=== PATIENT | female | born 1980 | race Caucasian/White ===

== ENCOUNTER → 2018-05-04 | Outpatient (CLI) | payer BC, OTHER ==
[~2018-05-04] MED LIST: DOCU100; IBUP800 PO; MULVITMINE PO; OXYACE5T PO
== END | disposition home or self-care (01) ==
LOC: LAB SHORT 09:19 → PLD 09:19
DX: D48.5 Neoplasm of uncertain behavior of skin (principal)
CPT/HCPCS: 88305

== ENCOUNTER 2018-09-16 19:01 | Emergency (ER) | payer OTHER ==
[~2018-09-16] VITALS: Ht 162.6 cm; Wt 59.0 kg
[2018-09-16 20:43] LABS: Influenza A Negative (NEGATIVE); Influenza B Negative (NEGATIVE)
== END 2018-09-16 20:54 | disposition home or self-care (01) ==
LOC: ER 19:01
PROVIDERS: Physician Assistant
DX: J04.0 Acute laryngitis (principal); Z88.0 Allergy status to penicillin
CPT/HCPCS: 87081; 87430; 87804; 99283

== ENCOUNTER 2018-10-21 18:50 | Emergency (ER) | payer OTHER ==
[~2018-10-21] VITALS: Ht 162.6 cm; Wt 61.2 kg
[2018-10-23 07:14] LABS: HCV ANTIBODY <0.1 (0.0-0.9); HIV SCREEN 4TH GENERATION WRFX Non Reactive (Non Reactive)
== END 2018-10-21 20:28 | disposition home or self-care (01) ==
LOC: ER 18:50
PROVIDERS: Physician Assistant
DX: Z77.21 Contact with and (suspected) exposure to potentially hazardous body fluids (principal); Z88.0 Allergy status to penicillin; Y99.0 Civilian activity done for income or pay
CPT/HCPCS: 36415; 84460; 86317; 86803; 87389; 99282

== ENCOUNTER → 2020-08-22 | Outpatient (CLI) | payer OTHER | END | disposition home or self-care (01) | LOC: PLD 11:44 → LAB SHORT 11:44 | DX: L57.8 Other skin changes due to chronic exposure to nonionizing radiation (principal) | CPT/HCPCS: 88305 ==

== ENCOUNTER → 2020-09-25 | Outpatient (CLI) | payer BC, OTHER ==
[2020-09-25 14:36] LABS: Candida species (DNA Probe) Negative (NEGATIVE); G. vaginalis (DNA Probe) Positive (NEGATIVE); T. vaginalis (DNA Probe) Negative (NEGATIVE)
== END ==
LOC: LAB 13:27 → LAB SHORT 13:27
PROVIDERS: Physician Assistant
DX: N76.0 Acute vaginitis (principal)
CPT/HCPCS: 87480; 87510; 87660

== ENCOUNTER → 2020-09-29 | Outpatient (CLI) | payer BC, OTHER ==
[2020-09-29 16:13] LABS: Candida species (DNA Probe) Negative (NEGATIVE); G. vaginalis (DNA Probe) Positive (NEGATIVE); T. vaginalis (DNA Probe) Negative (NEGATIVE)
[2020-10-01 04:10] LABS: CHLAMYDIA TRACHOMATIS, NAA Negative (Negative)
== END | disposition home or self-care (01) ==
LOC: LAB SHORT 15:00 → LAB 15:00
PROVIDERS: Physician Assistant
DX: N72 Inflammatory disease of cervix uteri (principal); N76.0 Acute vaginitis
CPT/HCPCS: 87480; 87491; 87510; 87591; 87660

== ENCOUNTER → 2020-10-05 | Outpatient (CLI) | payer BC, OTHER ==
[2020-10-06 11:21] LABS: Candida species (DNA Probe) Negative (NEGATIVE); G. vaginalis (DNA Probe) Negative (NEGATIVE); T. vaginalis (DNA Probe) Negative (NEGATIVE)
[2020-10-09 13:08] LABS: HPV 16 Negative (Negative); HPV 18 Negative (Negative); HPV OTHER HR TYPES Negative (Negative)
== END | disposition home or self-care (01) ==
LOC: LAB SHORT 16:17 → LAB 16:17
PROVIDERS: Family Medicine
DX: Z01.419 Encounter for gynecological examination (general) (routine) without abnormal findings (principal); N76.0 Acute vaginitis
CPT/HCPCS: 87480; 87510; 87624; 87660; G0123

== ENCOUNTER → 2021-07-25 | Outpatient (CLI) | payer BC, OTHER | END | disposition home or self-care (01) | LOC: LAB 11:08 → LAB SHORT 11:08 | DX: D36.9 Benign neoplasm, unspecified site (principal) | CPT/HCPCS: 88305 ==

== ENCOUNTER 2021-10-18 01:46 | Emergency (ER) | payer BC, OTHER ==
[~2021-10-18] VITALS: Ht 162.6 cm; Wt 68.0 kg
[2021-10-18] MEDS ORDERED: EUTHYROX25 MC1 PO (01:57)
[2021-10-18 02:03] LABS: Source, Urine Clean Catch
[2021-10-18 02:12] LABS: Appearance, Urine Cloudy (Clear); Bilirubin, Urine Neg (Neg); Blood, Urine 5+ (Neg); Color, Urine Yellow (P-Yellow); Glucose Qualitative, Urine Neg (Neg); Ketones, Urine Neg (Neg); Leukocyte Esterase, Urine 3+ (Neg); Nitrite, Urine Neg (Neg); Protein, Urine 3+ (Neg); Specific Gravity, Urine 1.025 (1.003-1.022); Urobilinogen, Urine NORM (Normal)
[2021-10-18 02:28] LABS: Bacteria Many /hpf; Red Blood Cells, Urine 50-100 /hpf (0-2); Squamous Epithelial Cells Few /hpf (Few); White Blood Cells, Urine 50-100 /hpf (0-5)
[2021-10-18] MEDS ORDERED: Pyridium100 MG PO (02:40)
[2021-10-18] MEDS ORDERED: Keflex500 MG PO (02:40)
== END 2021-10-18 02:59 | disposition home or self-care (01) ==
LOC: ER 01:46
PROVIDERS: Emergency Medicine
DX: N39.0 Urinary tract infection, site not specified (principal); Z88.0 Allergy status to penicillin
CPT/HCPCS: 81001; 81025; 87077; 87086; 87186; 99283; A9270

== ENCOUNTER 2023-04-14 21:38 | Observation (INO) | payer BC ==
[~2023-04-14] VITALS: Ht 162.6 cm; Wt 69.8 kg
[~2023-04-14 21:38] MED LIST changes: +EUTHYROX25 MC1 PO; +Keflex500 MG PO; +Pyridium100 MG PO
[2023-04-14 22:04] LABS: BASOPHILS ABSOLUTE AUTO 0.08 K/mm3 (0.00-0.23); BASOPHILS PERCENT AUTO 1 % (0-2); EOSINOPHILS ABSOLUTE AUTO 0.19 K/mm3 (0.00-0.68); EOSINOPHILS PERCENT AUTO 2 % (0-6); Hematocrit 41.9 % (33.0-51.0); IMMATURE GRAN ABSOLUTE AUTO 0.03 K/mm3 (0.00-0.10); IMMATURE GRAN PERCENT AUTO 0 % (0-1); LYMPHOCYTES ABSOLUTE AUTO 1.69 K/mm3 (0.84-5.20); LYMPHOCYTES PERCENT AUTO 15 % (21-46); MONOCYTES ABSOLUTE AUTO 1.01 K/mm3 (0.16-1.47); MONOCYTES PERCENT AUTO 9 % (4-13); Mean Corpuscular HGB 28.7 pg (26.0-34.0); Mean Corpuscular HGB Conc 33.4 g/dL (31.5-36.5); Mean Corpuscular Volume 86 fL (80-100); Mean Platelet Volume 9.9 fL (9.1-12.4); NEUTROPHILS ABSOLUTE AUTO 8.45 K/mm3 (1.96-9.15); NEUTROPHILS PERCENT AUTO 74 % (41-73); Platelet Count 285 K/mm3 (150-400); RDW Coefficient Variation 12.5 % (11.7-14.2); RDW Standard Deviation 39.6 fL (35.1-46.3); Red Blood Cell Count 4.87 M/mm3 (3.80-5.20); White Blood Cell Count 11.45 K/mm3 (4.00-11.30)
[2023-04-14 22:22] LABS: Albumin, Blood 4.1 g/dL (3.4-5.0); Albumin/Globulin Ratio 1.1 (0.8-1.8); Bilirubin, Total 0.4 mg/dL (0.1-1.0); Bun/Creatinine Ratio 16.7 (12.0-20.0); Calcium, Blood 9.1 mg/dL (8.5-10.1); Creatinine, Blood 0.72 mg/dL (0.40-1.00); Globulin, Blood 3.7 g/dL (2.2-4.0); Total Protein, Blood 7.8 g/dL (6.4-8.2)
[2023-04-14 23:12] LABS: Source, Urine Clean Catch
[2023-04-14 23:15] LABS: Bilirubin, Urine Neg (Neg); Blood, Urine Neg (Neg); Glucose Qualitative, Urine Neg (Neg); Ketones, Urine 1+ (Neg); Leukocyte Esterase, Urine Neg (Neg); Nitrite, Urine Neg (Neg); Protein, Urine Neg (Neg); Urobilinogen, Urine NORM (Normal)
[2023-04-14 23:17] LABS: Appearance, Urine Clear (Clear); Color, Urine Pale Yellow (P-Yellow)
[2023-04-15] VITALS (18 sets, daily range): BP systolic 99–127; BP diastolic 57–79
--- NOTE | 2023-04-15 05:02 | NUR ---
SHIFT SUMMARY A&OX4, AND COOPERATIVE WITH CARE. UPON ARRIVAL, PT AMBULATED FROM GURNEY TO BATHROOM/BED INDEPENDENTLY. ARRIVED WITH FLAGYL INFUSING. STARTED LR AND MAXIPIME ONCE COMPLETED. MANAGED PAIN WITH FENTANYL. OFFERED HEATING PAD FOR COMFORT. NPO FOR PROCEDURE LATER TODAY. CALLS APPROPRIATELY, CALL LIGHT WITHIN REACH.
--- NOTE | 2023-04-15 10:20 | NUR ---
IGNITION SOURCES/FIRE RISK ASSESSMENT DISCUSSED SMOKING/FIRE RISK/IGNITION SOURCE RISKS WTIH THE PATIENT, SHE DENIES EVER HAVING SMOKED IN HER LIFE AND REPORTS NOT HAVING ANY IGNITION SOURCES IN HER POSESSION, PT VERBALIZED THE IMPORTANCE OF FIRE SAFETY ESPECIALLY IN THE PRESENCE OF OXYGEN WHICH SHE ACKNOWLEDGES A FLAMMABLE GAS. DISCUSSED THE HX OF THE CLEAN AIR ACT WITH HER INCLUDING THE FACT THAT SMOKING HAS BEEN BANNED IN DOORS SINCE 1980. PT AGREES NOT TO START SMOKING WHILE SHE IS HERE.
--- NOTE | 2023-04-15 15:32 | NUR ---
PACU DISCHARGE PT ARRIVED TO PACU W SPO2 >94% ON RM AIR WHICH SHE MAINTAINED. BP WNL AND STABLE. MONITOR SHOWING SR IN THE 70'S. PT GIVEN 25MCG FENTANYL IN PACU FOR 5/10 ABDOMINAL PAIN. PT IS TOLERATING PO FLUIDS. PT IS REPORTING FEELING TIRED AND HUNGRY. WILL REPORT TO RECIEVING MERRICK.
--- NOTE | 2023-04-15 19:45 | NUR ---
SHIFT SUMMARY PODO LAP APPY, A/OX4, VSS, TOLERATING PO, PAIN WELL MANAGED, PT HAS NOT NEEDED ANY PAIN MEDS SINCE ARRIVING TO HER ROOM AFTER PACU, AMBULATES INDEPENDENTLY IN HER ROOM. DISCUSSED DISCHARGE INFORMATION WITH THE PATIENT INCLUDING HOME CARE, MEDICATIONS, AND FOLLOW UP APPOINTMENTS. INFORMED PATIENT THAT SHOULD ANYTHING ASSISTANT DISTRICT ATTORNEY NIGHT THAT THESE INSTRUCTIONS MAY BE ADJUSTED AND TOMORROWS DAY RN WILL GO OVER ANYTHING NEW WITH HER. PT HAD NO QUESTIONS AT THIS TIME. REPORT GIVEN TO FAUSTO RN.
[2023-04-16 04:19] VITALS: BP 107/65
--- NOTE | 2023-04-16 04:45 | NUR ---
POD 1 S/P LAP APPY. PT VSS T/O NIGHT. INCISIONS CDI, ABD SOFT TO PALP. PAIN MGD W/PO PAIN MEDS PER EMAR. ABD SOMEWHAT LESS DISTENDED THIS AM, PT GÉNESIS PO, DENIED N/V, REP +SMALL AMT FLATUS, PT VOIDING URINE W/O DIFFICULTY. PT AMB INDEP IN ROOM. PLAN TO D/C HOME THIS AM.
[2023-04-16 07:12] VITALS: BP 100/65
[2023-04-16] MEDS ORDERED: OXYC5 PO (08:08)
--- NOTE | 2023-04-16 09:14 | NUR ---
FIRE SAFETY ASSESSMENT AND EDUCATION DONE, VERBALIZED UNDERSTANDING, PT DENIES HX OF SMOKING, NO IGNITION SOURCES IDENTIFIED, PT DENIES HAVING ANY IGNITION SOURCES IN ROOM.
--- NOTE | 2023-04-16 10:44 | NUR ---
DC'D HOME, REPORTS TOLERATING REG DIET, PAIN TOLERABLE WITH TYLENOL, PT STATES SHE WAS GIVEN HER DC INSTRUCTIONS YESTERDAY.
== END 2023-04-16 10:33 | disposition home or self-care (01) ==
LOC: ER 21:38 → SURS 21:39 → ER 04-15 03:14 → UNDODEPER 04-15 06:43 → SURS 04-16 10:33
PROVIDERS: Student in an Organized Health Care Education/Training Program; Surgery; ADMIT Surgery
PROC: 0DTJ4ZZ Resection of Appendix, Percutaneous Endoscopic Approach (ICD-10-PCS; principal; 2023-04-15 12:30)
DX: K35.80 Unspecified acute appendicitis (principal); Z88.0 Allergy status to penicillin
CPT/HCPCS: 74177; 80053; 81003; 83690; 85025; 88304; 94760; 96365-59; 96366; 96375; 96376; 99285-25; A9270; G0378; J0692; J0696; J1100; J1170; J1885; J2405; J2704; J3010; J7120; Q9967

== ENCOUNTER 2024-06-29 18:36 | Emergency (ER) | payer SELFPAY ==
[~2024-06-29] VITALS: Ht 162.6 cm; Wt 70.3 kg
[~2024-06-29 18:36] MED LIST changes: +OXYC5 PO
[2024-06-29 19:37] LABS: BASOPHILS ABSOLUTE AUTO 0.07 K/mm3 (0.00-0.23); BASOPHILS PERCENT AUTO 1 % (0-2); EOSINOPHILS ABSOLUTE AUTO 0.34 K/mm3 (0.00-0.68); EOSINOPHILS PERCENT AUTO 5 % (0-6); Hematocrit 38.3 % (33.0-51.0); Hemoglobin 13.1 g/dL (11.5-16.0); IMMATURE GRAN ABSOLUTE AUTO 0.01 K/mm3 (0.00-0.10); IMMATURE GRAN PERCENT AUTO 0 % (0-1); LYMPHOCYTES ABSOLUTE AUTO 1.98 K/mm3 (0.84-5.20); LYMPHOCYTES PERCENT AUTO 26 % (21-46); MONOCYTES ABSOLUTE AUTO 0.71 K/mm3 (0.16-1.47); MONOCYTES PERCENT AUTO 9 % (4-13); Mean Corpuscular HGB Conc 34.2 g/dL (31.5-36.5); Mean Corpuscular Volume 85 fL (80-100); Mean Platelet Volume 9.8 fL (9.1-12.4); NEUTROPHILS ABSOLUTE AUTO 4.51 K/mm3 (1.96-9.15); NEUTROPHILS PERCENT AUTO 59 % (41-73); Platelet Count 276 K/mm3 (150-400); RDW Coefficient Variation 12.3 % (11.7-14.2); RDW Standard Deviation 37.9 fL (35.1-46.3); Red Blood Cell Count 4.52 M/mm3 (3.80-5.20); White Blood Cell Count 7.62 K/mm3 (4.00-11.30)
[2024-06-29 20:06] LABS: Albumin, Blood 3.6 g/dL (3.4-5.0); Albumin/Globulin Ratio 1.1 (0.8-1.8); Bilirubin, Total 0.2 mg/dL (0.1-1.0); Bun/Creatinine Ratio 14.7 (12.0-20.0); Calcium, Blood 8.4 mg/dL (8.5-10.1); Creatinine, Blood 0.88 mg/dL (0.40-1.00); Globulin, Blood 3.3 g/dL (2.2-4.0); Potassium, Blood 3.5 mmol/L (3.5-5.5); Total Protein, Blood 6.9 g/dL (6.4-8.2)
[2024-06-30] MEDS ORDERED: Lidocaine 4% 1 Patch TOP ONE (01:30)
[2024-06-30 02:45] VITALS: BP 104/66
== END 2024-06-30 02:54 | disposition home or self-care (01) ==
LOC: ER 18:36
PROVIDERS: Student in an Organized Health Care Education/Training Program
DX: M62.838 Other muscle spasm (principal); I20.9 Angina pectoris, unspecified; E03.9 Hypothyroidism, unspecified; Z88.0 Allergy status to penicillin; Z79.890 Hormone replacement therapy
CPT/HCPCS: 70498; 71046; 80053; 83690; 84484; 85025; 93005; 93010; 99284-25; A9270; Q9967